=== PATIENT | female | born 1985 | race Caucasian/White ===

== ENCOUNTER 2020-10-05 13:20 | Emergency (ER) | payer MEDICAID ==
[~2020-10-05] VITALS: Ht 162.6 cm; Wt 59.0 kg
[2020-10-05] MEDS ORDERED: MUPI1OIN4 TP (14:20)
[2020-10-05] MEDS ORDERED: CLIN300C12 MT (14:20)
[2020-10-05 14:37] VITALS: BP 112/97
== END 2020-10-05 14:39 | disposition home or self-care (01) ==
LOC: ER 13:20
DX: L03.012 Cellulitis of left finger (principal); L03.011 Cellulitis of right finger; Z88.0 Allergy status to penicillin
CPT/HCPCS: 99283